=== PATIENT | male | born 1990 | race Asian ===

== ENCOUNTER 2018-09-02 23:01 | Emergency (ER) | payer SELFPAY ==
[~2018-09-02] VITALS: Ht 170.2 cm; Wt 73.0 kg
[2018-09-03] MEDS ORDERED: KETOROLAC 30MG/ML VIAL IV STA (00:28)
[2018-09-03] MEDS ORDERED: VISCOUS LIDOCAINE 2% 15 ML UDC PO STA (00:28)
[2018-09-03] MEDS ORDERED: MAGNESIUM/ALUMINUM HYDROXIDE/SIMETHICONE 30ML UDC PO STA (00:28)
[2018-09-03] MEDS ORDERED: DICYCLOMINE 10 MG/5 ML ORAL SYR PO STA (00:28)
[2018-09-03] MEDS ORDERED: SODIUM CHLORIDE 0.9% 1,000 ML IV ONE (00:28)
[2018-09-03] MEDS ORDERED: ONDANSETRON HCL 4MG/2ML INJ IV STA (00:28)
[2018-09-03 00:49] LABS: HEMATOCRIT. 43.7 % (42.0-52.0); MEAN CORPUSCULAR HEMOGLOBIN 28.4 pg (28.0-32.0); MEAN CORPUSCULAR VOLUME 82.7 fL (80.0-94.0); MEAN PLATELET VOLUME 7.9 fl (7.4-10.4); PLATELET 237 x1000/uL (130-400); RED BLOOD CELL COUNT 5.29 mill/uL (4.7-6.1); RED CELL DISTRIBUTION WIDTH 13.1 % (11.6-14.6)
[2018-09-03 00:56] LABS: CHLORIDE 105 mEq/L (98-107)
[2018-09-03 01:20] LABS: PLATELET ESTIMATE NORMAL
[2018-09-03] MEDS ORDERED: ONDANSETRON 4MG ODT PO ONE (01:45)
[2018-09-03 02:05] VITALS: BP 104/62
== END 2018-09-03 02:09 | disposition home or self-care (01) ==
LOC: ER 23:01
DX: R10.9 Unspecified abdominal pain (principal)
CPT/HCPCS: 36415; 80053; 83690; 85025; 96361; 96374; 96375; 99284; J1885; J2405; J7030; Q0162; Z7610